=== PATIENT | male | born 1960 | race American Indian/Alaskan Native ===

== ENCOUNTER 2018-11-11 05:42 | Emergency (ER) | payer SELFPAY ==
[2018-11-11 05:42] VITALS: BMI 30.2
[2018-11-11 06:46] VITALS: RESP 16; TEMP 97.9
--- NOTE | 2018-11-11 07:08 | ED PDOC ---
Arrival/HPI - General Chief Complaint: Medical Clearance Time Seen by Provider: 11/11/18 07:01 Historian: Patient - History of Present Illness Narrative History of Present Illness (Text): 11/11/18 07:05 58 year old male, with no significant past medical history, who presents to the Emergency department in police custody for medical clearance. Patient has no medical complaints. Patient denies any fever, chills, chest pain, shortness of breath, nausea, vomiting, diarrhea, urinary symptoms, back pain, neck pain, headache, dizziness, or any other complaints. Symptom Onset: Other Symptom Course: Unchanged Activities at Onset: Light Context: Other (police custody) Past Medical History - Provider Review Nursing Documentation Reviewed: Yes - Infectious Disease Hx of Infectious Diseases: None - Cardiac Hx Hypertension: Yes - Renal Hx Kidney Stones: Yes - Musculoskeletal/Rheumatological Hx Falls: No - Psychiatric Hx Depression: No Hx Emotional Abuse: No Hx Physical Abuse: No Hx Substance Use: Yes - Suicidal Assessment Feels Threatened In Home Enviroment: No Family/Social History - Physician Review Nursing Documentation Reviewed: Yes Family/Social History: Unknown Family HX Smoking Status: Never Smoked Hx Alcohol Use: Yes Hx Substance Use: Yes Substance used: MARIJUANA Hx Substance Use Treatment: No Allergies/Home Meds Allergies/Adverse Reactions: Allergies No Known Allergies Allergy (Verified 11/04/12 12:37) Home Medications: Home Meds Medication Instructions Recorded Confirmed Warfarin [Coumadin] 15 mg PO DAILY 11/04/12 11/04/12 Review of Systems - Physician Review All systems were reviewed & negative as marked: Yes - Review of Systems Constitutional: Normal Eyes: Normal ENT: Normal Respiratory: Normal. absent: SOB, Cough Cardiovascular: Normal. absent: Chest Pain Gastrointestinal: Normal. absent: Abdominal Pain Genitourinary Male: Normal. absent: Dysuria, Frequency Musculoskeletal: Normal. absent: Back Pain, Neck Pain Skin: Normal. absent: Rash Neurological: Normal. absent: Headache Endocrine: Normal Hemo/Lymphatic: Normal Psychiatric: Normal Physical Exam Vital Signs Reviewed: Yes Vital Signs Temp Pulse Resp BP Pulse Ox 11/11/18 05:50 97.9 F 80 16 167/107 H 98 Temperature: Afebrile Blood Pressure: Hypertensive Pulse: Regular Respiratory Rate: Normal Appearance: Positive for: Well-Appearing, Non-Toxic, Comfortable Pain Distress: None Mental Status: Positive for: Alert and Oriented X 3 - Systems Exam Head: Present: Atraumatic, Normocephalic Pupils: Present: PERRL Extroacular Muscles: Present: EOMI Conjunctiva: Present: Normal Mouth: Present: Moist Mucous Membranes Neck: Present: Normal Range of Motion Respiratory/Chest: Present: Clear to Auscultation, Good Air Exchange. No: Respiratory Distress, Accessory Muscle Use Cardiovascular: Present: Regular Rate and Rhythm, Normal S1, S2. No: Murmurs Abdomen: No: Tenderness, Distention, Peritoneal Signs Back: Present: Normal Inspection Upper Extremity: Present: Normal Inspection. No: Cyanosis, Edema Lower Extremity: Present: Normal Inspection. No: Edema Neurological: Present: GCS=15, CN II-XII Intact, Speech Normal Skin: Present: Warm, Dry, Normal Color. No: Rashes Psychiatric: Present: Alert, Oriented x 3, Normal Insight, Normal Concentration, Other (sleepy) Medical Decision Making ED Course and Treatment: 11/11/18 07:08 Impression: 58 year old male presents to the Emergency department in police custody for medical clearance Plan: -- Reassess and disposition Progress Notes: 11/11/18 12:18 no medical complaint zuleyka walters - Scribe Statement The provider has reviewed the documentation as recorded by the Scribe Temitope Matos All medical record entries made by the Scribe were at my direction and personally dictated by me. I have reviewed the chart and agree that the record accurately reflects my personal performance of the history, physical exam, medical decision making, and the department course for this patient. I have also personally directed, reviewed, and agree with the discharge instructions and disposition. Disposition/Present on Arrival - Present on Arrival Any Indicators Present on Arrival: No History of DVT/PE: No History of Uncontrolled Diabetes: No Urinary Catheter: No History of Decub. Ulcer: No History Surgical Site Infection Following: None - Disposition Have Diagnosis and Disposition been Completed?: Yes Diagnosis: Medical clearance for incarceration Disposition: HOME/ ROUTINE Disposition Time: 07:00 Condition: STABLE Additional Instructions: pt cleared for incarceration. Referrals: [facility] [Outside] - Follow up with primary [facility] at [facility] [place] [Outside] - Follow up with primary Forms: [employer] (Citizen [place])
[2018-11-11 07:16] VITALS: BP 145/84; PULSE 76; O2SAT 100
== END 2018-11-11 07:10 | disposition home or self-care (01) ==
LOC: ED 05:42
DX: Z02.89 Encounter for other administrative examinations (principal); I10 Essential (primary) hypertension